=== PATIENT | male | born 1950 | race Caucasian/White ===

== ENCOUNTER 2024-03-25 10:08 | Emergency (ER) | payer MEDICARE, MEDICAID, SELFPAY ==
[2024-03-25] VITALS (7 sets, daily range): BP systolic 125–193; BP diastolic 77–148; PULSE 60–101; RESP 18–20; TEMP 37.3–37.9; O2SAT 16–96; BMI 26.6
--- NOTE | 2024-03-25 10:25 | PC.NURSE ---
TERESSA at this time s/p [facility] Per report, pt had no LOC but exhibits poor balance. Suspicions of ETOH to be made because we found tall cans of beer near pt at the homeless detention. Upon arrival, pt was soaked in clothes and with dirty boots on. Pt changed into a gown and performed linen change. Pt reports having hx of DM and and HTN but states I don't take any medication because I don't want to. Pt GCS 15 upon arrival.
--- NOTE | 2024-03-25 10:31 | XR_ITS ---
Examination: CT brain head without contrast. 2-D sagittal coronal reconstructions Date and time of exam:March 25, 2024 1047 hrs. Comparison March 03, 2024 Indications: Onset altered mental status today followed by phone with injury to the head, head pain, history stroke, history 3 mm acute infarct left parietal lobe on March 04, 2024. CTDI: vol (mGy):51.2 DLP: (mGycm):1106 Technique: Multiple CT axial sections of the brain have been obtained, 5 mm slice thickness. Contrast has not been administered. 2-D sagittal, coronal reconstructions have been obtained Low dose protocols were performed. One or more of the following dose reduction techniques were used; automated exposure control, adjustment of the mA and/or KV according to patient size, use of iterative reconstruction technique. Findings: No significant ventricular enlargement. Intra-axial or extra-axial hemorrhage density is not seen. No mass effect or midline shift Basal cisterns are not remarkable. Fourth ventricle is midline. Cranial vault intact. Impression: Negative for acute hemorrhage, mass effect or midline shift If altered mental status persists, consider repeat brain MRI follow-up, stroke protocol
--- NOTE | 2024-03-25 10:32 | XR_ITS ---
Examination: CT cervical spine without contrast 2-D sagittal reconstructions 2-D coronal reconstructions 3-D reconstructions. Exam date and time:March 25, 2024 at 1047 hrs. Comparison May 09, 2023 Indications: Patient fell today with injury to the neck, neck pain CTDI:vol (mGy) 9.11 DLP: (mGycm) 184 Technique: Multiple 2 mm axial sections of the cervical spine have been obtained. The coronal and sagittal reconstructions have been obtained. 3-D reconstructions have been obtained. Low dose protocols were performed. One or more of the following dose reduction techniques were used; automated exposure control, adjustment of the mA and/or KV according to patient size, use of iterative reconstruction technique. Findings: Axial sections demonstrate intact base of the skull. C1 exhibit satisfactory relationship to the odontoid. No acute cervical vertebral body fracture seen. Alignment posterior spinous processes satisfactory. Impression: No acute cervical fracture.
--- NOTE | 2024-03-25 10:32 | EKG_ITS ---
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1950 Requested By: Samir Maldonado Order Number: [id number] Reading MD: Samir Maldonado Measurements Intervals [place] Rate: 103 P: 95 WI: 203 QRS: 28 QRSD: 139 T: 169 QT: 359 QTc: 470 Interpretive Statements SINUS TACHYCARDIA INTRAVENTRICULAR CONDUCTION DELAY [130+ ms QRS DURATION] LEFT VENTRICULAR HYPERTROPHY AND ST-T CHANGE [VOLTAGE CRITERIA PLUS ST/T ABNORMALITY] Compared to ECG 03/03/2024 09:10:02 Intraventricular conduction delay now present Left ventricular hypertrophy now present ST (T wave) deviation now present Sinus rhythm no longer present Left bundle-branch block no longer present /store/S0/[id number]/ecg/[id number].pdf
--- NOTE | 2024-03-25 10:36 | XR_ITS ---
Examination: AP chest single view Technique one AP portable semiupright chest single view Exam date and time: March 25, 2024 1116 hrs. Indications: Shortness of breath chest pain beginning 2 days ago Comparison: March 03, 2024 Findings: Mild heart failure Mild enlargement cardiac contour Prominent vascular congestion including central vascular engorgement and early perihilar septal edema Prominent osteopenia Impression: Mild CHF
--- NOTE | 2024-03-25 10:59 | PD.EDFALL ---
ED Fall Injury RME/HPI General Chief Complaint: Fall Stated Complaint: FALL Time Seen by Provider: 03/25/24 10:25 Arrival date/time: 03/25/24 10:08 Limitations: no limitations RME / HPI RME / HPI Narrative: DR. MAYA MAIN ED EVALUATION: 73-year-old male, who is a very poor historian, presents to the Emergency Department BIBA after he had several witnessed [facility] Patient denies any complaints. He does know that he feels like he?s falling . He does not corroborate that he fell. He denies any pain, no head pain, and no pain in extremities. PMHx: CVA 02/2024, type 2 diabetes, and hypertension. Related Data Home Medications ?Medication ?Instructions ?Recorded ?Confirmed furosemide 40 mg tablet 40 mg PO QDAY 09/20/20 07/20/23 insulin detemir U-100 100 unit/mL 30 unit subcut QDAY 09/20/20 07/20/23 subcutaneous solution (Levemir U-100 Insulin) liraglutide 0.6 mg/0.1 mL (18 mg/3 0.6 mg subcut QDAY 09/20/20 07/20/23 mL) subcutaneous pen injector (Victoza 3-Enoc) montelukast 10 mg tablet 10 mg PO QPM 09/20/20 07/20/23 sitagliptin phosphate 100 mg 50 mg PO BID 12/26/21 07/20/23 tablet (Januvia) bisacodyl 10 mg rectal suppository 10 mg AZ QDAY PRN 06/08/23 07/20/23 Previous Rx's ?Medication ?Instructions ?Recorded albuterol sulfate 90 mcg/actuation 2 inh inhalation QID PRN shortness 04/08/23 aerosol inhaler of breath or wheezing #8.5 grams budesonide 160 mcg-glycopyr 9 2 inh inhalation QDAY #10.7 grams 04/08/23 mcg-formot 4.8 mcg/actuation HFA inhaler (Breztri Aerosphere) tiotropium bromide 1.25 2 puff inhalation QAM #4 grams 04/08/23 mcg/actuation mist for inhalation atorvastatin 40 mg tablet 40 mg PO QDAY #30 tabs 03/05/24 clopidogrel 75 mg tablet 75 mg PO QDAY 28 days #28 tabs 03/05/24 aspirin 81 mg tablet,delayed 81 mg PO QDAY 30 days #30 tabs 03/06/24 release levothyroxine 75 mcg capsule 75 mcg PO ACBR 60 days #60 caps 03/06/24 Allergies Allergy/AdvReac Type Severity Reaction Status Date / Time procaine [From Novocain] Allergy Dizziness Verified 07/20/23 14:19 Review of Systems Review of Systems Systems Reviewed: All systems reviewed, normal except as documented Narrative Review of Systems: GEN: No fever, no chills, no weight loss EYES: No discharge, no visual changes, no pain HEENT: No ear pain, no congestion, no sore throat PULM: No shortness of breath, no cough, no congestion CV: No chest pain, no dyspnea on exertion, no palpitations GI: No nausea, no vomiting, no diarrhea, no pain, no constipation : No frequency, no urgency and no dysuria MUSC/SKEL: No joint pain, no back pain SKIN: No rash PSYCH: No hallucinations, no depression HEME/LYMPH: No easy bleeding or bruising tendencies NEURO: No weakness, no headache Past Medical History Past Medical History NEUROLOGIC: Positive Cerebrovascular Accident and Peripheral Neuropathy CARDIAC: Positive Myocardial Infarction, Hypercholesterolemia and Hypertension RESPIRATORY: Positive Pneumonia GASTROINTESTINAL: Positive Gastrointestinal Disorders and Gastroesophageal Reflux Disease MUSCULOSKELETAL: Positive Musculoskeletal Disorders and Arthritis ENT: Positive Cataracts and Deafness ENDOCRINE: Positive Endocrine Disorders and Diabetes Mellitus Type 2 OTHER HISTORY: Positive Hospitalization, Shingles, Chicken Pox, Measles and Mumps Family History FAMILY HISTORY: Positive Family Respiratory Disorders Surgical History SURGICAL: Positive Cardiac Surgery, Coronary Stent and Angiogram Social History SMOKING STATUS: Current some day smoker SECOND HAND EXPOSURE: No ED Exam General Limitations: Present no limitations General appearance: Present alert, in no apparent distress and other (Patient is very unkept, malodorous.) Head Head exam: Present atraumatic Eye Eye exam: Present normal appearance, PERRL and EOMI ENT ENT exam: Present normal exam, normal oropharynx and mucous membranes moist Neck Neck exam: Present normal inspection, full ROM and trachea midline Chest Chest inspection: Present normal inspection and symmetric chest wall rise Respiratory Respiratory exam: Present normal lung sounds bilaterally Cardiovascular Cardiovascular exam: Present regular rate, normal rhythm and normal heart sounds Abdominal Exam Abdominal exam: Present soft and normal bowel sounds Extremities Exam Extremities exam: Present pedal edema (4+ pitting edema, bilateral lower.) and other (At various levels of ecchymosis on his upper extremities); Absent full ROM (difficulty moving on his own due to weakness (had a stroke 02/2024)) Back Exam Back exam: Present normal inspection Neurological Exam Neurological exam: Present alert, oriented X3 and CN II-XII intact Psychiatric Psychiatric exam: Present normal affect and normal mood Skin Skin exam: Present warm, dry, intact and normal color Course Course Course Narrative: 1800: Patient was signed out to Dr. Trinh. Past medical, surgical, social and family history reviewed. Vitals and home medications reviewed. Results and treatment plan discussed. They will assume the care of the patient at this time and will follow the patient, pending SNF placement. Quality Measures none Orders Category Date Time Status Consult Director Surgical NOW Care 03/25/24 12:45 Completed EKG (ED ONLY) *Do not use* NOW Care 03/25/24 10:32 Completed Referral Physical Therapy Stat Cons 03/25/24 11:[address] cervical spine wo con Stat Exams 03/25/24 10:[address] head/brain wo con Stat Exams 03/25/24 10:31 Completed EKG (ED Only) Stat Exams 03/25/24 10:32 Draft XR chest 1V Stat Exams 03/25/24 10:36 Completed Alcohol, Blood Medical Stat Lab 03/25/24 11:10 Completed CBC Stat Lab 03/25/24 11:10 Completed CMP [Comprehensive Metabolic Panel] Stat Lab 03/25/24 11:10 Completed Partial Thromboplastin Time Stat Lab 03/25/24 11:10 Completed Procalcitonin Stat Lab 03/25/24 11:10 Completed Prothrombin Time with INR Stat Lab 03/25/24 11:10 Completed Troponin I Stat Lab 03/25/24 11:10 Completed Insulin Regular Med 03/25/24 10:57 Discontinued 6 unit SC X1 ONE Sodium Chloride 0.9% 1000 ml [Ns] 1,000 ml Med 03/25/24 10:57 Discontinued IV 999 mls/hr Reevaluation(s) Reevaluation #1: 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 Time: 13:15 Vital Signs Vital signs: Vital Signs Temperature 99.1 F 03/25/24 10:15 Pulse Rate 60 03/25/24 10:15 Respiratory Rate 18 03/25/24 10:15 Blood Pressure 157/77 H 03/25/24 10:15 Pulse Oximetry (%) 94 L 03/25/24 10:15 Oxygen Delivery Method Room Air 03/25/24 10:15 Procedures -ED EKG Interpretation #1: Date of EK03/25/24 Time of EK:10 Rate: 103 Interpretation: Interpreted by me Additional EKG comment: sinus tachycardia, rate 103, widened QRS, intraventricular conduction delay pattern, no acute ST-T wave changes Fall MDM Narrative MDM Narrative:: Mr. Salinas presents to the emergency department after several falls at the [facility] is staying at. Of note he was recently admitted to [facility] 2 weeks ago for a CVA of the parietal region which is likely associated with his neurologic deficit. He has a mild metabolic derangement with hyperglycemia here today which I feel is likely triggering scar tissue from his previous CVA. Head CT was done which shows no acute findings today. Patient is otherwise remained stable here in the emergency department, on review of his last admission he had refused the recommended placement to longterm for physical therapy. He is currently agreeable and social service has been consulted for placement. I, Cassidy Nguyen, am scribing for and in the presence of Dr. Maya. Patient accepted to [facility]. Patient data External records reviewed:: [facility] previous records (Reviewed neurology note by Dr. Koehler, dated 03/07/24.) and EMS form Clinical information provided by:: patient and EMS Social determinants that could affect healthcare access:: housing (homeless) Patient has the following chronic illnesses:: CVA 02/2024, type 2 diabetes, and hypertension. How is presenting disease/condition affected by chronic disease/condition?: exacerbated by Evaluation data The following diagnostics were reviewed and interpreted by me:: lab results, radiology exam(s) and EKG tracing(s) Lab and/or radiology exams considered but not ordered:: none Interpretation Summary: Procedure(s): XR chest 1V Accession Number(s): [id number] cc: Samir Maya MD; Jeff Galvan MD~ Examination: AP chest single view Technique one AP portable semiupright chest single view Exam date and time: March 25, 2024 1116 hrs. Indications: Shortness of breath chest pain beginning 2 days ago Comparison: March 03, 2024 Findings: Mild heart failure Mild enlargement cardiac contour Prominent vascular congestion including central vascular engorgement and early perihilar septal edema Prominent osteopenia Impression: Mild CHF Dictated By: Jeff Galvan MD Procedure(s): CT cervical spine [facility] Accession Number(s): [id number] cc: Samir Maya MD; Jeff Galvan MD~ Examination: CT cervical spine without contrast 2-D sagittal reconstructions 2-D coronal reconstructions 3-D reconstructions. Exam date and time:March 25, 2024 at 1047 hrs. Comparison May 09, 2023 Indications: Patient fell today with injury to the neck, neck pain CTDI:vol (mGy) 9.11 DLP: (mGycm) 184 Technique: Multiple 2 mm axial sections of the cervical spine have been obtained. The coronal and sagittal reconstructions have been obtained. 3-D reconstructions have been obtained. Low dose protocols were performed. One or more of the following dose reduction techniques were used; automated exposure control, adjustment of the mA and/or KV according to patient size, use of iterative reconstruction technique. Findings: Axial sections demonstrate intact base of the skull. C1 exhibit satisfactory relationship to the odontoid. No acute cervical vertebral body fracture seen. Alignment posterior spinous processes satisfactory. Impression: No acute cervical fracture. Dictated By: Jeff Galvan MD Procedure(s): CT head/brain wo con Accession Number(s): [id number] cc: Samir Maya MD; Jeff Galvan MD~ Examination: CT brain head without contrast. 2-D sagittal coronal reconstructions Date and time of exam:March 25, 2024 1047 hrs. Comparison March 03, 2024 Indications: Onset altered mental status today followed by phone with injury to the head, head pain, history stroke, history 3 mm acute infarct left parietal lobe on March 04, 2024. CTDI: vol (mGy):51.2 DLP: (mGycm):1106 Technique: Multiple CT axial sections of the brain have been obtained, 5 mm slice thickness. Contrast has not been administered. 2-D sagittal, coronal reconstructions have been obtained Low dose protocols were performed. One or more of the following dose reduction techniques were used; automated exposure control, adjustment of the mA and/or KV according to patient size, use of iterative reconstruction technique. Findings: No significant ventricular enlargement. Intra-axial or extra-axial hemorrhage density is not seen. No mass effect or midline shift Basal cisterns are not remarkable. Fourth ventricle is midline. Cranial vault intact. Impression: Negative for acute hemorrhage, mass effect or midline shift If altered mental status persists, consider repeat brain MRI follow-up, stroke protocol Dictated By: Jeff Galvan MD Medications / Prescriptions Medications or Prescriptions considered but not ordered:: none Medication administrations:: Medication Administration History Discontinued Medications Sodium Chloride (Ns) 1,000 mls @ 999 mls/hr IV .Q1H1M ONE Stop: 03/25/24 11:57 Last Infusion: 03/25/24 15:49 Dose: Infused Documented By: Admin: 03/25/24 11:29 Dose: 999 mls/hr Documented By: GM Insulin Human Regular (Insulin Hum Regular 1 Unit/0.01 Ml (Per Unit)) 6 unit SC X1 ONE Stop: 03/25/24 10:58 Last Admin: 03/25/24 11:29 Dose: 6 unit Documented By: RADHA Co-signed By: KDC see above Consultations Consultation(s) initiated? (list below): No Diagnosis Fall Differential Diagnosis: syncope and other (fall, head injury) Most likely diagnosis given after review of the tests above:: Fall Admission Indicated Admission indicated?: not indicated Admission Request Was there a request for admission?: No Disposition Plan Disposition Plan: Discharge (Patient signout to the night shift supervisor provider.) Discharge Attestation Discharge Attestation: The patient and all family members were given an opportunity to ask questions and understood the discharge instructions. Discharge instructions specifically effects, indications for sooner follow up or return to the emergency department, and the expected course of current diagnosis. Patient condition: Stable Discharge Plan Plan Patient Disposition: Xfer Skilled Nsg Fac (SNF) Patient condition on transfer: Stable Prescriptions/Referrals Prescriptions/Med Rec: No Action bisacodyl 10 mg suppository 10 mg AZ QDAY PRN furosemide 40 mg tablet 40 mg PO QDAY Patient Comments: TAKE 1 TABLET BY MOUTH EVERY DAY montelukast 10 mg tablet 10 mg PO QPM Patient Comments: TAKE 1 TABLET BY MOUTH EVERY DAY IN THE EVENING Levemir U-100 Insulin 100 unit/mL solution 30 unit SUBCUT QDAY Victoza 3-Enoc 0.6 mg/0.1 mL (18 mg/3 mL) pen injector 0.6 mg SUBCUT QDAY Patient Comments: INJECT 0.6 MG SUBCUTANEOUSLY ONCE A DAY Januvia 100 mg Tablet 50 mg PO BID clopidogrel 75 mg Tablet 75 mg PO QDAY 28 Days Qty: 28 0RF atorvastatin 40 mg tablet 40 mg PO QDAY Qty: 30 0RF aspirin 81 mg Tablet,Delayed Release (Dr/Ec) 81 mg PO QDAY 30 Days Qty: 30 0RF levothyroxine 75 mcg capsule 75 mcg PO ACBR 60 Days Qty: 60 0RF Breztri Aerosphere 160-9-4.8 mcg/actuation HFA aerosol inhaler 2 inh inhalation QDAY Qty: 10.7 2RF albuterol sulfate 90 mcg/actuation HFA aerosol inhaler 2 inh inhalation QID PRN (Reason: shortness of breath or wheezing) Qty: 8.5 6RF tiotropium bromide 1.25 mcg/actuation mist 2 puff inhalation QAM Qty: 4 0RF Referrals: No Primary/Family,Physician [Primary Care Provider] - In 1 week Problem List Clinical Impression: Dizziness, Fall Patient/Caregiver Discharge Instructions Print Language: Bermudian Stand Alone Forms: Mary Award Info., Patient Portal Info Letter
[2024-03-25] MEDS: INSULIN HUM REGULAR 1 UNIT/0.01 ML (PER UNIT) 6 UNIT SC (11:29)
[2024-03-25] MEDS: SODIUM CHLORIDE 0.9% 1000 ML 1,000 ML 999 ML IV (11:29)
[2024-03-25 11:32] LABS: Basophils # (Auto) 0.1 Thou/mm3 (0.0-0.2); Basophils % (Auto) 1 % (0-2.5); Eosinophils # (Auto) 0.2 Thou/mm3 (0.0-0.5); Eosinophils % (Auto) 1 % (0-10); Hematocrit 56.2 % (41.0-53.0); Immature Granulocytes % (Auto) 1 % (0-0); Immature Granulocytes Auto 0.06 Thou/mm3 (0.00-0.00); Lymphocytes % (Auto) 9 % (10-50); Mean Corpuscular HGB Conc 33.8 g/dl (31.0-37.0); Mean Corpuscular Hemoglobin 28.3 pg (25.0-35.0); Mean Corpuscular Volume 84 fL (80-100); Monocytes # (Auto) 0.6 Thou/mm3 (0.0-0.8); Monocytes % (Auto) 5 % (0-12); Neutrophils # (Auto) 9.1 Thou/mm3 (1.8-7.7); Neutrophils % (Auto) 83 % (37-80); Nucleated Red Blood Cell % 0 /100 WBC (0); Platelet Count 247 Thou/mm3 (140-440); RDW Standard Deviation 39.3 fL (35.1-43.9); Red Blood Count 6.71 Miln/mm3 (4.50-5.90)
--- NOTE | 2024-03-25 11:35 | PC.NURSE ---
Pt urinated on self; pt educated to use call light if needing help for voiding; per pt, I peed because I needed to go and when I need to go, I just go. Pt given linen change; urinal at bedside available for pt; pt educated and made aware of urinal. Pt given gown change as well as perineal care.
[2024-03-25 11:56] LABS: Prothrombin Time 11.2 Seconds (9.0-12.2)
[2024-03-25 12:00] LABS: Alanine Aminotransferase 14 U/L (10-49); Albumin, Serum 4.7 gm/dL (3.4-4.8); Albumin/Globulin Ratio 1.7 (1.2-2.2); Alcohol, Blood Medical < 3.0 mg/dL (0-10.0); Alkaline Phosphatase 112 U/L (46-116); Anion Gap 5 (7-16); Aspartate Amino Transferase 16 U/L (0-34); BUN/Creatinine Ratio 8 Ratio (12-20); Bilirubin,Total 1.8 mg/dL (0.3-1.2); Blood Urea Nitrogen 10 mg/dL (9-23); Calcium 9.8 mg/dL (8.3-10.6); Calcium (Corrected) 9.8 mg/dL (8.5-10.1); Carbon Dioxide 30.6 mMol/L (20.0-31.0); Chloride 104 mMol/L (98-107); Creatinine (Component) 1.3 mg/dL (0.6-1.3); Estimated Creatinine Clearance 47.5 mL/min (>60); Globulin 2.7 gm/dL (2.3-3.5); Glucose 244 mg/dL (74-106); Osmolality,Calculated 286 (275-295); Potassium 3.7 mMol/L (3.4-5.1); Procalcitonin 0.11 ng/ml (0.0-0.49); Sodium 140 mMol/L (136-145); Total Protein 7.4 gm/dL (5.7-8.2); Troponin I 0.025 ng/mL (0.0-0.045); eGFR 57 See Note
--- NOTE | 2024-03-25 13:54 | PC.CC ---
Addendum entered by Julius Mead II 03/25/24 14:50: 1422-Call to [facility] for gurney transport for pt who is high fall risk due to recent stroke. Reference # [id number]. PCS and face sheet uploaded to About. 1450-Call from [facility], transport ETA set for 1545. Carlota from [facility] is aware. Addendum entered by Julius Mead II 03/25/24 14:15: [facility] able to accept pt today 03/25/24. Accepting facilities presented to pt at this time. Pt has selected [facility] for placement. Original Note: Pt Ahsan Salinas is a 73 yr old male to ED for frequent falls. Pt is chronically homeless, resides at [facility]. Pt admitted 03/03-03/07 for stroke, at that time pt declined SNF placement. Pt is now agreeable to SNF placement. VOLUNTEER SERVICES ASSISTANT CC met with pt at bedside. Pt did not specify preference of facility. Noted pt was placed at [facility] in 06/02 following hip fracture. PASRR completed, and packet uploaded to About. To support placement, VOLUNTEER SERVICES ASSISTANT CC uploaded H&P and D/c Summary from last admission. At this time time: [facility] is considering/at capacity [facility] has accepted-VOLUNTEER SERVICES ASSISTANT CC inquired if pt is able to D/c today? Pending response. [facility] is able to accept.
--- NOTE | 2024-03-25 15:53 | PC.NURSE ---
pt incontinent of large amt of urine and cleaned before transferred to [facility]
== END 2024-03-25 15:55 | disposition skilled nursing facility (03) ==
PROVIDERS: Emergency Provider Emergency Medicine
DX: S19.9XXA Unspecified injury of neck, initial encounter (principal); S09.90XA Unspecified injury of head, initial encounter; R00.0 Tachycardia, unspecified; I11.0 Hypertensive heart disease with heart failure; I50.9 Heart failure, unspecified; W19.XXXA Unspecified fall, initial encounter; Z59.01 Sheltered homelessness
CPT/HCPCS: 36415; 70450; 71045; 72125; 80053; 80307; 80320; 81001; 84145; 84484; 85025; 85610; 85730; 93005; 96360; 96361; 96372; 99284; J1815; J7030; G0480